=== PATIENT | male | born 1975 | race African-American/Black ===

== ENCOUNTER 2017-05-22 15:21 | Observation (INO) ==
[2017-05-22] MEDS ORDERED: ASPIRIN 325 MG TABLET PO STA (16:56)
[2017-05-22] MEDS ORDERED: ASPIRIN 325 MG TABLET ONE (16:57)
--- NOTE | 2017-05-22 17:29 | XRay Report ---
History: Shortness of breath Date: 05/22/2017 Study: Chest x-ray AP portable Comparison exam: September 05, 2012 The cardiac silhouette is upper normal in size. The mediastinal contours are unremarkable. The pulmonary vasculature is not engorged. The lungs and pleural spaces are clear. Osseous structures are unchanged. Impression: No acute cardiopulmonary process. No significant interval change PROCEDURE INTERPRETED AT [facility] DEPARTMENT OF RADIOLOGY Final Report Signed by: Dr. Tessa Mancnii
[2017-05-22 17:32] LABS: Basophils # 0.1 10*3/uL (0.0-0.2); Basophils % 0.8 % (0.0-0.8); Eosinophils # 0.2 10*3/uL (0.0-0.87); Eosinophils % 2.4 % (0.00-10.9); Hematocrit 42.7 VOL% (42.0-52.0); Hemoglobin 14.8 GM/DL (14.0-18.0); Immature Granulocytes % 0.2 %; Immature Granulocytes Absolute 0.01 #; Lymphocytes # 2.5 10*3/uL (1.4-4.0); Lymphocytes % 38.6 % (21.2-54.2); Mean Corpuscular HGB Conc 34.7 GM/DL (32-36); Mean Corpuscular Hemoglobin 27 PG (27-34); Mean Corpuscular Volume 79.1 FL (87-102); Mean Platelet Volume 10.9 FL (9.6-12.0); Monocytes # 0.6 10*3/uL (0.11-0.8); Monocytes % 9.3 % (1.7-12.7); Neutrophils # 3.1 10*3/uL (1.4-7.4); Neutrophils % 48.7 % (38.7-73.9); Platelet Count 257 T/CUMM (130-400); Red Cell Distribution Width 12.9 % (9.3-17.3); White Blood Count 6.4 T/CUMM (4-12)
--- NOTE | 2017-05-22 17:36 | Emergency Department Note ---
IElder Brittany, am scribing for, and in the presence of, Jostin Watts MD 16:24. Mac Alonzo Charles R, MD, personally performed the services described in this documentation, ascribed by Radha Friedman in my presence, and it is both accurate and complete . Arrival - Arrival Chief Complaint: Blood Pressure Stated Complaint: blood pressure problems ED Nursing Triage Note: pt ambulatory to triage with c/o having elevated bp onset yesterday pt states he has been taking his meds and today at work they checked it and it was 170/107 so they sent him here. Mode of Arrival: Ambulatory Limitations: No Limitations Source: Patient, RN Notes Reviewed - History of Present Illness HPI Narrative: Patient is a 42 y/o black male presenting to the ED with c/o elevated blood pressure with an onset of this morning. Patient reports that this morning he had a "weird feeling," so he checked his blood pressure this morning and found himself to be hypertensive. He then went to [employer] to eat breakfast to have something on his stomach before taking his Metoprolol. He then waited about an hour after taking Metoprolol to recheck his blood pressure and noted to still be hypertensive. He then went to work as scheduled and still felt "weird." He cehcked his blood pressure and was noted to still be hypertensive with a reading of 170/110 mmHg. 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 He then went home, felt better, but then later noticed his heart go into irregular rhythm. He notes that he took a Procardia, but never went back into regular rhythm. He states that his bilateral lower extremities swell often as well. At one time he was on diuretic therapy, but due to excess loss of potassium he was taken off. He is a patient of Dr. Torres, [employer]. He has no other complaint/pain. Onset (ago): hour(s) Consistency: constant Allergies/Adverse Reactions: Allergies Allergy/AdvReac Type Severity Reaction Status Date / Time No Known Allergies Allergy Verified 05/22/17 15:30 Home Medications: Home Medications Medication Instructions Recorded Confirmed Type Aspirin EC Tab 81 mg PO DAILY 05/22/17 05/22/17 History Metoprolol Tartrate 50 mg PO DAILY 05/22/17 05/22/17 History NIFEdipine XL TAB [Procardia Xl] 60 mg PO DAILY 05/22/17 05/22/17 History Review of System - Review of System 12 point system: reviewed and no additional remarkable complaints except as stated - Review of System Constitutional: Absent: chills, fever Eyes: Absent: vision change Head/Ears/Nose/Throat: Absent: nasal drainage, sore throat Respiratory: Absent: respiratory distress Cardiovascular: Present: palpitations, other (elevated blood pressure). Absent : chest pain Gastrointestinal: Absent: abdominal pain, nausea, vomiting, diarrhea, constipation Genitourinary male: Absent: urgency, dysuria, frequency Musculoskeletal: Absent: arm pain, back pain, leg pain, neck pain Skin: Absent: rash Neurological: Absent: headache Psychiatric: Absent: anxiety, depression Medical,Surgical,& Family Hx - Social History Smoking Status: Former smoker Frequency of Alcohol Use: None Type of Drug Use: None Exam Vital Signs: Vital Signs Temperature 97.6 F 05/22/17 15:50 Pulse Rate 63 05/22/17 18:00 Respiratory Rate 18 05/22/17 18:00 Blood Pressure 132/91 05/22/17 18:00 O2 Sat by Pulse Oximetry 97 05/22/17 18:00 - General General appearance: alert, in no apparent distress - Head Head exam: Present: atraumatic, normocephalic, normal inspection - Eye Eye exam: Present: normal appearance, PERRL, EOMI - ENT ENT exam: Present: normal exam, normal oropharynx - Neck Neck exam: Present: normal inspection, full ROM, trachea midline - Chest Chest inspection: Present: normal inspection, symmetric chest wall rise - Respiratory Respiratory exam: Present: normal lung sounds bilaterally - Cardiovascular Cardiovascular exam: Present: regular rate, irregular rhythm (rate controlled irregular rhythm), normal heart sounds. Absent: normal rhythm - Abdominal Exam Abdominal exam: Present: soft, normal bowel sounds. Absent: tenderness - Extremities Exam Extremities exam: Present: pedal edema (+1 edema noted to bilateral lower extremities) - Back Exam Back exam: Present: normal inspection - Neurological Exam Neurological exam: Present: alert, oriented X3, CN II-XII intact. Absent: motor sensory deficit - Psychiatric Psychiatric exam: Present: normal affect, normal mood - Skin Skin exam: Present: warm, dry Course - Consultations Consultation #1: Hospitalist will admit patient Time: 18:29 Results - Labs CBC & BMP: 05/22/17 17:19 05/22/17 17:19 Lab Results: I have reviewed the patients labs Labs: Laboratory Tests 05/22/17 17:19 WBC 6.4 RBC 5.40 Hgb 14.8 Hct 42.7 MCV 79.1 L MCH 27 MCHC 34.7 RDW 12.9 Plt Count 257 MPV 10.9 Neut % (Auto) 48.7 Lymph % (Auto) 38.6 Heard % (Auto) 9.3 Eos % (Auto) 2.4 Baso % (Auto) 0.8 Neut # (Auto) 3.1 Lymph # (Auto) 2.5 Heard # (Auto) 0.6 Eos # (Auto) 0.2 Baso # (Auto) 0.1 Immature Gran % 0.2 Nucleated RBC % 0.0 Immature Gran # 0.01 Nucleated RBCs # 0.00 Laboratory Tests 05/22/17 17:19 Magnesium 2.2 Free T4 1.00 - Diagnostic Findings Procedure: Chest x-ray: report reviewed by me (No acute cardiopulmonary process. No significant interval change.) Disposition Clinical Impression: A. fib rate controlled, Essential Hypertension, Elevated troponin Case discussed with: patient, patient's family Disposition: Still a Patient Condition: Stable Time of Disposition: 18:30
--- NOTE | 2017-05-22 17:37 | EKG Report ---
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
[2017-05-22 17:50] LABS: Magnesium 2.2 MG/DL (1.8-2.4)
[2017-05-22 17:56] LABS: Apearance,Urine CLEAR (Clear); Bilirubin,Urine Negative (Negative); Blood, Urine Negative (Negative); Glucose,Urine (UA) Negative (Negative); Ketones,Urine Negative (Negative); Mucus,Urine Occasional /LPF (Occasional); Nitrite,Urine Negative (Negative); Protein,Urine Negative; RBC,Urine <1 /HPF (0-4); Urine Color Yellow (Yellow); Urine Specific Gravity 1.015 (1.001-1.035); Urine Urobilinogen < 2.0 EU/DL (0.2-1.0); WBC,Urine 1 /HPF (0-6)
[2017-05-22 17:57] LABS: Albumin 3.9 G/DL (3.4-5.0); Bilirubin,Total 0.4 MG/DL (0.2-1.0); Calcium 8.8 MG/DL (8.5-10.1); Osmolality,Calculated 281.3 MOS/KG (273-304); Potassium 3.9 MMOL/L (3.5-5.1); Thyroid Stimulating Hormone 1.21 uIU/ml (0.358-3.74); Total Protein 7.2 G/DL (6.4-8.3); Troponin I Only 0.072 NG/ML (0.00-0.045)
[2017-05-22 18:06] LABS: Barbiturates Screen,Urine Negative (Negative); Benzodiazepines Screen,Urine Negative (Negative); Cannabinoid Screen,Urine Negative (Negative); Opiate Screen,Urine Negative (Negative); Phencyclidine Screen,Urine Negative (Negative)
--- NOTE | 2017-05-22 18:58 | Hospitalist History & Physical ---
Assessment and Plan (1) New onset atrial fibrillation Status: Acute Assessment and plan: metoprolol 50 mg po bid, eliquis 5 mg po bid Current Visit: Yes (2) Hypertension Status: Acute Assessment and plan: losartan 50 mg po bid, procardia, metoprolol Current Visit: Yes (3) RONEL (obstructive sleep apnea) Status: Acute Assessment and plan: cpap at bedtime, check for compliance Current Visit: Yes History of Present Illness Chief complaint: flutter History of present illness: Mr. Wakefield is a 42 year old male presents to the ED with c/o elevated blood pressure with an onset of this morning. Patient reports that this morning he had a "weird feeling," so he checked his blood pressure this morning and found himself to be hypertensive. He rechecked his blood pressure and was noted to still be hypertensive with a reading of 170/110 mmHg. Patient denies sob or chest pain. Patient noted to be in atrial fib in the Er. Patient sees Dr. Torres as an outpatient. Reports 20 pound weight gain and has bilateral LE edema. Home Medications Medication Instructions Recorded Confirmed Type Aspirin EC Tab 81 mg PO DAILY 05/22/17 05/22/17 History Metoprolol Tartrate 50 mg PO DAILY 05/22/17 05/22/17 History NIFEdipine XL TAB [Procardia Xl] 60 mg PO DAILY 05/22/17 05/22/17 History Allergies Allergy/AdvReac Type Severity Reaction Status Date / Time No Known Allergies Allergy Verified 05/22/17 15:30 Medical,Surgical,& Family Hx - Medical History Cardio: History of: Hypertension - Surgical History Orthopedic Surgeries: Surgical HX of;: Orthopedic Surgery (right acl and meniscus tear) - Family History Family History: Reports;: Family Cancer, Family Diabetes - Social History Smoking Status: Former smoker Frequency of Alcohol Use: None Type of Drug Use: None Marital Status: Single Lives With:: Alone Functional capacity: independent ambulation - Constitutional Constitutional: Present: weight gain. Absent: fatigue, fever(s), headache(s) - EENT Eyes: Absent: blurry vision, diplopia Ears: Absent: decreased hearing, ear discharge Nose, mouth and throat: Absent: headache(s), sore throat - Cardiovascular Cardiovascular: Present: edema. Absent: chest pain at rest, dyspnea, dyspnea on exertion - Respiratory Respiratory: Absent: cough, dyspnea, dyspnea on exertion - Gastrointestinal Gastrointestinal: Absent: constipation, diarrhea, nausea, vomiting - Genitourinary Genitourinary: Absent: difficulty urinating, dysuria - Neurological Neurological: Absent: confusion, headache(s), syncope - Psychiatric Psychiatric: Absent: anxiety, depression - Endocrine Endocrine: Absent: fatigue, heat intolerance - Hematologic/Lymphatic Hematologic/Lymphatic: Absent: easy bleeding, easy bruising Exam - Constitutional Vitals: Period Temp Pulse Resp BP Sys/Wellington Pulse Ox Last 24 Hr 97.6 F-97.6 F 58-86 15-19 111-141/83-91 18-99 General appearance: no acute distress, over weight - Head Head exam: Present: normal inspection, normocephalic - Eye Eye exam: Present: EOMI. Absent: scleral icterus Pupils: Present: GILDA, normal accommodation - ENT ENT exam: Present: normal exam, normal external ear exam - Neck Neck exam: Present: thyromegaly. Absent: lymphadenopathy - Respiratory Respiratory exam: Present: clear to auscultation bilaterally. Absent: rhonchi, wheezes - Cardiovascular Cardiovascular exam: Present: bradycardia, irregular rhythm - GI/Abdominal GI/Abdominal exam: Present: normal bowel sounds, soft. Absent: tenderness - Extremities Exam Extremities exam: Present: edema - Neurological Exam Neurological exam: Present: alert, oriented X3, CN II-XII intact, reflexes normal. Absent: motor sensory deficit - Psychiatric Psychiatric exam: Present: normal affect, normal mood - Skin Skin exam: Present: normal color, warm Results - Labs CBC & BMP: 05/22/17 17:19 05/22/17 17:19 Lab Results: I have reviewed the past 24 hour labs - EKG EKG shows: bradycardia, atrial fibrillation - Diagnostic Findings Procedure: Chest x-ray: report reviewed by me (rose)
[2017-05-22] MEDS ORDERED: ONDANSETRON 4 MG/2 ML VIAL IV PRN (21:29)
[2017-05-22] MEDS ORDERED: ACETAMINOPHEN 325 MG TABLET PO PRN (21:29)
[2017-05-22] MEDS: LOSARTAN 50 MG TABLET PO SCH (22:45)
[2017-05-22 22:49] LABS: INR 1.1; PT Patient Result 11.2 SECS
[2017-05-22] MEDS: FUROSEMIDE 20 MG/2 ML VIAL IV SCH (22:53)
[2017-05-22] MEDS: APIXABAN 5 MG TABLET PO SCH (22:53)
[2017-05-23 05:11] LABS: Risk Ratio 3.4; VLDL CHOLESTEROL 20.4 MG/DL
[2017-05-23 05:16] LABS: Calcium 9.3 MG/DL (8.5-10.1); Osmolality,Calculated 276.5 MOS/KG (273-304); Potassium 3.7 MMOL/L (3.5-5.1)
[2017-05-23] MEDS ORDERED: ASPIRIN EC 81 MG TABLET PO SCH (09:00)
[2017-05-23] MEDS: POTASSIUM CHLORIDE 10 MEQ TABLET PO SCH (09:21)
[2017-05-23] MEDS: METOPROLOL TARTRATE 50 MG TABLET PO SCH ×2 (09:21→21:50)
[2017-05-23] MEDS: LOSARTAN 50 MG TABLET PO SCH ×2 (09:31→21:50)
[2017-05-23] MEDS: FUROSEMIDE 20 MG/2 ML VIAL IV SCH ×2 (09:31→16:04)
[2017-05-23] MEDS: APIXABAN 5 MG TABLET PO SCH (09:31)
--- NOTE | 2017-05-23 14:26 | Cardiology Consult Note ---
Assessment and Plan - Time spent with patient Time spent with patient: Greater than 30 minutes (due to lengthy discussion regarding patients medical therapy and compliance) (1) Paroxysmal atrial fibrillation Status: Chronic Assessment and plan: See plan of care listed below. Current Visit: Yes (2) Hypertension Status: Chronic Assessment and plan: See plan of care listed below. Current Visit: Yes (3) RONEL (obstructive sleep apnea) Status: Chronic Assessment and plan: See plan of care listed below. Current Visit: Yes (4) Medical non-compliance Status: Chronic Assessment and plan: See plan of care listed below. Current Visit: Yes (5) Former tobacco use Status: Chronic Assessment and plan: See plan of care listed below. Current Visit: Yes (6) Obesity Status: Chronic Assessment and plan: See plan of care listed below. Current Visit: Yes History of Present Illness - Data of Consult Patient: known to practice within the last 3 years Consult date: 05/23/17 Requesting Physician: Brody Smith III - Consult Narrative Reason for consult: hypertension, lower extremity edema History of present illness: Regional Coordinator: Dr. Torres Mr. Wakefield is a 42 year old male with a history of paroxysmal atrial fibrillation, hypertension, palpitations, obstructive sleep apnea, former tobacco use. Risk factors are significant for: hypertension, obesity, former tobacco use. He has previously had a normal stress test over 5 years ago. 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 The patient presented to the emergency department on 05/22/17 with the complaints of elevated blood pressure and bilateral lower extremity edema. He reports that he woke up "feeling funny" and checked his blood pressure and noted it was 170/ 110 and decided he needed to be evaluated further. He denies chest pain, shortness of breath, dizziness, lightheadedness, syncope, fever, chills, nausea , vomiting, diarrhea. He does report having heartburn. He has also noticed occasional palpitations. He states that his blood pressure had been within normal limits up until this past week. Several days ago, he reports he had not been getting much sleep, maybe 2-5 hours per night for several nights. He also reports he had several nights where he did not wear his CPAP machine. He has previously been on Multaq and quit taking this due to cost. He has also been on Hyzaar in the past and reports the HCTZ made him feel short of breath, so this was also stopped. Mr. Wakefield tells me that he was told by his physician to take Metoprolol 25mg QAM and if he had palpitations during the day, take an additional 25mg tablet at noon. If he continued to have palpitations after that , he states he was told to take a 3rd 25mg tablet. He states he has taken up to 100mg in one day due to palpitations. On admission, his labs were unremarkable. He had an isolated trivially elevated troponin. We will repeat. I suspect this is related to his elevated blood pressure. EKG on admission showed atrial fibrillation with controlled ventricular response with ST-T abnormality, unchanged from October 2016 EKG ( sinus rhythm at that time). He has been in atrial fibrillation with controlled ventricular response since admission. Echocardiogram was performed 05/23/17 and revealed mild LVH, EF 60%, mild biatrial enlargement, and mild pulmonic insufficiency. ASSESSMENT/PLAN: 1. PAROXYSMAL ATRIAL FIBRILLATION - Patient remains in atrial fibrillation. Would like to start him on flecainide; however, the patient tells us if we would just give him an additional dose of Metoprolol 25mg po, this would put him back in a normal rhythm. Will give a one time dose of metoprolol. I suspect if we prescribe flecainide, he is not likely to take this new medication. At some point, if he continues to have issues with PAF, he may be a candidate for ablation. Will further discuss with Dr. Amaya and await his additional recommendations. 2. HYPERTENSION - Currently well controlled on the current therapy. Recommend patient continue Losartan 50mg PO BID, metoprolol 50mg PO BID, procardia XL 60mg PO daily, and full strength aspirin. Patient has few comorbidities and does not wish to be placed on chronic anticoagulation. After discussing with Dr. Amaya, we'll increase his Aspirin to full strength. 3. OBSTRUCTIVE SLEEP APNEA - Sleep medicine is having his device evaluated. Dr. Amaya and I both stressed the importance of compliance as his RONEL could cause him to have more frequent paroxysms of atrial fibrillation. 4. MEDICAL NONCOMPLIANCE - He has a long-standing history of noncompliance with his medications, documented as far back as 2011. He tells me today, "I've been managing my medicines for years and can tell when I need to take something." 5. FORMER TOBACCO USE - Quit in 2014. 6. OBESITY - Chronic. CC: Brody Smith III - Home Medications and Allergies Home Medications: Home Medications Medication Instructions Recorded Confirmed Type Aspirin EC Tab 81 mg PO DAILY 05/22/17 05/22/17 History Metoprolol Tartrate 50 mg PO DAILY 05/22/17 05/22/17 History NIFEdipine XL TAB [Procardia Xl] 60 mg PO DAILY 05/22/17 05/22/17 History Allergies/Adverse Reactions: Allergies Allergy/AdvReac Type Severity Reaction Status Date / Time No Known Allergies Allergy Verified 05/22/17 15:30 12 point system: reviewed and no additional remarkable complaints except as stated Medical,Surgical,& Family Hx - Medical History Cardio: History of: Cardiac Dysrhythmia (AFib), Hypertension - Surgical History Orthopedic Surgeries: Surgical HX of;: Orthopedic Surgery (right acl and meniscus tear) - Family History Family History: Reports;: Family Cancer, Family Diabetes - Social History Smoking Status: Former smoker Frequency of Alcohol Use: None Type of Drug Use: None Marital Status: Lives With:: Spouse Functional capacity: independent ambulation Physical Examination Vital Signs Temp Pulse Resp BP Pulse Ox 97.6 F 80 18 137/87 98 05/22/17 15:24 05/22/17 15:24 05/22/17 15:24 05/22/17 15:24 05/22/17 15:24 Exam: General appearance: Obese, no acute distress. - Head Head exam: Present: normal inspection, normocephalic, atraumatic. Absent: hematoma, laceration - Eye Eye exam: Present: EOMI. Absent: conjunctival injection, nystagmus, periorbital swelling, scleral icterus, laceration to eyelids Pupils: Present: PERRL. Absent: constricted, dilated, fixed, irregular, unequal - ENT ENT exam: Present: normal exam, normal external ear exam - Neck Neck exam: Present: normal inspection. Absent: lymphadenopathy, meningismus, tenderness, thyromegaly - Respiratory Respiratory exam: Present: clear to auscultation bilaterally. Absent: accessory muscle use, chest wall tenderness - Cardiovascular Cardiovascular exam: Present: Irregular rate and rhythm. Absent: carotid bruit , gallop, JVD, rubs, murmur - GI/Abdominal GI/Abdominal exam: Present: normal bowel sounds, soft. Absent: distended, firm , guarding, hernia, mass, tenderness, rebound. - Extremities Exam Extremities exam: Present: normal inspection, normal capillary refill. Upper extremity pulses 2+. Lower extremity pulses 2+. 1+ pitting edema to BLE. Absent : calf tenderness -Musculoskeletal Exam Musculoskeletal: Present: No Fluid Collection, No Pain, Normal Range of Motion - Back Exam Back exam: Present: normal inspection. Absent: muscle spasm, vertebral tenderness - Neurological Exam Neurological exam: Present: alert, oriented X3, grossly intact without resting or essential tremor - Psychiatric Psychiatric exam: Present: normal affect, normal mood - Skin Skin exam: Present: normal color, warm, dry, intact. Absent: cyanosis, diaphoretic, rash, urticaria Result/EKG - Labs CBC & BMP: 05/22/17 17:19 05/23/17 04:08 Lab Results: I have reviewed the past 24 hour labs Labs: Laboratory Results - last 24 hr 05/22/17 05/22/17 05/22/17 17:19 17:19 17:19 WBC 6.4 RBC 5.40 Hgb 14.8 Hct 42.7 MCV 79.1 L MCH 27 MCHC 34.7 RDW 12.9 Plt Count 257 MPV 10.9 Neut % (Auto) 48.7 Lymph % (Auto) 38.6 Ponce % (Auto) 9.3 Eos % (Auto) 2.4 Baso % (Auto) 0.8 Neut # (Auto) 3.1 Lymph # (Auto) 2.5 Ponce # (Auto) 0.6 Eos # (Auto) 0.2 Baso # (Auto) 0.1 Immature Gran % 0.2 Nucleated RBC % 0.0 Immature Gran # 0.01 Nucleated RBCs # 0.00 INR PT Patient/Control Mix Circ Anticoag PTT Sodium Potassium Chloride Carbon Dioxide Anion Gap BUN Creatinine GFR Calculation BUN/Creatinine Ratio Glucose Calculated Osmolality Calcium Magnesium 2.2 Total Bilirubin AST ALT Alkaline Phosphatase Troponin I B-Natriuretic Peptide 13 Total Protein Albumin Globulin Albumin/Globulin Ratio Triglycerides Cholesterol LDL Cholesterol VLDL Cholesterol HDL Cholesterol Heart Disease Risk Ratio Free T4 1.00 TSH 3rd Generation Urine Color Urine Appearance Urine pH Ur Specific Wallace Urine Protein Urine Glucose (UA) Urine Ketones Urine Blood Urine Nitrate Urine Bilirubin Urine Urobilinogen Urine Leukocytes Urine RBC Urine WBC Urine Mucus Urine Yeast (Budding) Ur Culture Indicated? Urine Opiates Screen Ur Barbiturates Screen Ur Phencyclidine Scrn U Amphetamine/Methamph U Benzodiazepines Scrn U Cocaine Metab Screen U Cannabinoids Screen 05/22/17 05/22/17 05/22/17 17:19 17:39 17:39 WBC RBC Hgb Hct MCV MCH MCHC RDW Plt Count MPV Neut % (Auto) Lymph % (Auto) Ponce % (Auto) Eos % (Auto) Baso % (Auto) Neut # (Auto) Lymph # (Auto) Ponce # (Auto) Eos # (Auto) Baso # (Auto) Immature Gran % Nucleated RBC % Immature Gran # Nucleated RBCs # INR PT Patient/Control Mix Circ Anticoag PTT Sodium 141 Potassium 3.9 Chloride 104 Carbon Dioxide 27 Anion Gap 13.9 BUN 13 Creatinine 1.20 GFR Calculation 126 BUN/Creatinine Ratio 10.00 Glucose 112 H Calculated Osmolality 281.3 Calcium 8.8 Magnesium Total Bilirubin 0.40 AST 23 ALT 38 Alkaline Phosphatase 65 Troponin I 0.072 H B-Natriuretic Peptide Total Protein 7.2 Albumin 3.9 Globulin 3.3 Albumin/Globulin Ratio 1.1 Triglycerides Cholesterol LDL Cholesterol VLDL Cholesterol HDL Cholesterol Heart Disease Risk Ratio Free T4 TSH 3rd Generation 1.210 Urine Color Yellow Urine Appearance Clear Urine pH 6.0 Ur Specific Wallace 1.015 Urine Protein Negative Urine Glucose (UA) Negative Urine Ketones Negative Urine Blood Negative Urine Nitrate Negative Urine Bilirubin Negative Urine Urobilinogen < 2.0 H Urine Leukocytes Negative Urine RBC <1 Urine WBC 1 Urine Mucus Occasional Urine Yeast (Budding) Few Ur Culture Indicated? Not indicated Urine Opiates Screen Negative Ur Barbiturates Screen Negative Ur Phencyclidine Scrn Negative U Amphetamine/Methamph Negative U Benzodiazepines Scrn Negative U Cocaine Metab Screen Negative U Cannabinoids Screen Negative 05/22/17 05/23/17 05/23/17 22:35 04:08 04:08 WBC RBC Hgb Hct MCV MCH MCHC RDW Plt Count MPV Neut % (Auto) Lymph % (Auto) Ponce % (Auto) Eos % (Auto) Baso % (Auto) Neut # (Auto) Lymph # (Auto) Ponce # (Auto) Eos # (Auto) Baso # (Auto) Immature Gran % Nucleated RBC % Immature Gran # Nucleated RBCs # INR 1.1 PT Patient/Control Mix 11.2 Circ Anticoag PTT 28.0 Sodium 139 Potassium 3.7 Chloride 103 Carbon Dioxide 29 Anion Gap 10.7 BUN 11 Creatinine 1.10 GFR Calculation 139 BUN/Creatinine Ratio 10.00 Glucose 109 H Calculated Osmolality 276.5 Calcium 9.3 Magnesium Total Bilirubin AST ALT Alkaline Phosphatase Troponin I B-Natriuretic Peptide Total Protein Albumin Globulin Albumin/Globulin Ratio Triglycerides 102 Cholesterol 143 LDL Cholesterol 81.0 VLDL Cholesterol 20.4 HDL Cholesterol 42 Heart Disease Risk Ratio 3.40 Free T4 TSH 3rd Generation Urine Color Urine Appearance Urine pH Ur Specific Wallace Urine Protein Urine Glucose (UA) Urine Ketones Urine Blood Urine Nitrate Urine Bilirubin Urine Urobilinogen Urine Leukocytes Urine RBC Urine WBC Urine Mucus Urine Yeast (Budding) Ur Culture Indicated? Urine Opiates Screen Ur Barbiturates Screen Ur Phencyclidine Scrn U Amphetamine/Methamph U Benzodiazepines Scrn U Cocaine Metab Screen U Cannabinoids Screen - EKG EKG results: interpreted by me EKG shows: atrial fibrillation
--- NOTE | 2017-05-23 14:31 | ECHO Report ---
Adebayo Wakefield Exam Date: 05/23/2017 07:55 Referring Physician: Technologist: Brandy Christensen RDCS Age: 42 Ht (in): 74 Wt (lb): 290 Gender: M Exam Location: [facility] Echo Indications: Atrial fibrillation, Essential (primary) hypertension, RONEL, Edema, unspecified BP: 157 / 81 HR: 79 Rhythm: Sinus Technical Quality: IMPRESSIONS Normal left ventricular cavity size. Mild concentric left ventricular hypertrophy. Normal systolic function. Left ventricular ejection fraction is estimated at 60 %. Mild biatrial enlargement. Mild pulmonic valve insufficiency. MEASUREMENTS (Male / Female) Normal Values 2D ECHO LV Diastolic Diameter PLAX 4.4 cm 4.2 - 5.9 / 3.9 - 5.3 cm LV Systolic Diameter PLAX 3.1 cm LV Fractional Shortening PLAX 30.2 % IVS Diastolic Thickness 1.3 cm 0.6 - 1.0 / 0.6 - 0.9 cm LVPW Diastolic Thickness 1.3 cm 0.6 - 1.0 / 0.6 - 0.9 cm RV Internal Dim ED PLAX 3.8 cm Aortic Root Diameter 3.6 cm LA Systolic Diameter LX 3.6 cm 3.0 - 4.0 / 2.7 - 3.8 cm DOPPLER TR Peak Velocity 235.0 cm/s TR Peak Gradient 22.1 mmHg FINDINGS Left Ventricle Normal left ventricular cavity size. Mild concentric left ventricular hypertrophy. Normal systolic function. Left ventricular ejection fraction is estimated at 60 %. Unable to estimate diastolic function due to arrhythmia. Right Ventricle The right ventricle is normal in size and function. Right Atrium The right atrium is mildly dilated. Left Atrium The left atrium is mildly dilated. Mitral Valve Morphologically normal mitral valve. Trace mitral valve regurgitation. Aortic Valve Morphologically normal aortic valve without significant sclerosis or stenosis. There is no aortic regurgitation. Tricuspid Valve Morphologically normal tricuspid valve. Trace tricuspid valve regurgitation. Tricuspid regurgitation velocities suggest a PAP of 22 mmHg plus right atrial pressure. Pulmonic Valve Morphologically normal pulmonic valve. Mild pulmonary valve regurgitation. Pericardium Normal pericardium without effusion. Aorta Normal ascending aorta dimension. Jay Amaya (Electronically Signed) Final Date: 23 May 2017 14:22
[2017-05-23] MEDS ORDERED: METOPROLOL TARTRATE 25 MG TABLET PO ONE (14:53)
[2017-05-23 16:23] LABS: Troponin I Only 0.068 NG/ML (0.00-0.045)
--- NOTE | 2017-05-23 16:48 | Sleep Medicine Consult ---
Assessment and Plan (1) RONEL (obstructive sleep apnea) Status: Chronic Assessment and plan: We will put him on auto titration mode tonight and see if he does better with the different pressure. We will follow-up his results from download in the morning. Thank you for this consult. Current Visit: Yes (2) Hypertension Status: Chronic Assessment and plan: The prevalence rate for obstructive sleep apnea patients with hypertension is 35 %. That rate can be as high as 80% in patients who require 4 or more medications for blood pressure control. Current Visit: Yes (3) Paroxysmal atrial fibrillation Status: Chronic Assessment and plan: Uncontrolled obstructive sleep apnea can be an exacerbating factor to atrial fibrillation and it is important to control sleep apnea and maintain compliance with CPAP. The patient is aware of this. Current Visit: Yes History of Present Illness Chief complaint: Obstructive sleep apnea History of present illness: Mr. Wakefield is a 42 year old male well known to me in the sleep clinic. He was diagnosed with obstructive sleep apnea in 2014. His obstructive sleep apnea was severe, having a diagnostic AHI of 86 with O2 desaturation to lows of 67%. He was titrated to pressures in the mid teens but had difficulty with tolerance and originally was placed on 8 cm. He had a difficult time with compliance but gradually achieved compliance. On his last follow-up in the sleep clinic on 03/25, he had a 93% usage rate nightly with a 73% compliance rate for over 4 hours of nightly usage. He had good control. Download from his machine that he brought with him shows 90% usage in the past month with a 66% compliance rate for over 4 hours nightly. He is averaging nightly about 5 hours of usage. His control is good with an AHI of 2.9. He feels like his machine is losing pressure during the night. He thinks this may be due to the machine heating up and losing some of its effectiveness. He knows the importance of compliance and has been warned multiple times about the dangers of untreated obstructive sleep apnea, given the severity of his RONEL. Home Medications Medication Instructions Recorded Confirmed Type Aspirin EC Tab 81 mg PO DAILY 05/22/17 05/22/17 History Metoprolol Tartrate 50 mg PO DAILY 05/22/17 05/22/17 History NIFEdipine XL TAB [Procardia Xl] 60 mg PO DAILY 05/22/17 05/22/17 History Allergies Allergy/AdvReac Type Severity Reaction Status Date / Time No Known Allergies Allergy Verified 05/22/17 15:30 Exam (Pulmonay) H&P - Constitutional Vitals: Period Temp Pulse Resp BP Sys/Wellington Pulse Ox Last 24 Hr 97.2 F-98.2 F 58-86 15-20 120-157/78-91 93-99 Exam: He is alert and responsive in no acute distress. Pupils equal round reactive to light and accommodation. Extraocular movements intact. Oropharynx with a class III Mallampati exam. Neck is supple without adenopathy or thyromegaly. No supraclavicular adenopathy is noted. Chest with symmetrical breath sounds without focal wheeze, rhonchi, or rales. Cardiac exam reveals a regular rhythm without murmur or gallop. Abdomen soft nontender without palpable hepatosplenomegaly or mass. Extremities are without clubbing, cyanosis, or edema. Neurologically, he is grossly intact. He moves all extremities with good strength and ambulates with a normal gait. Medical,Surgical,& Family Hx - Medical History Cardio: History of: Cardiac Dysrhythmia (AFib), Hypertension Respiratory: History of: Obstructive Sleep Apnea (Severe with diagnostic AHI of 86 and O2 desats to 67% in 2015) - Surgical History Orthopedic Surgeries: Surgical HX of;: Orthopedic Surgery (right acl and meniscus tear) - Family History Family History: Reports;: Family Cancer, Family Diabetes - Social History Smoking Status: Former smoker Frequency of Alcohol Use: None Type of Drug Use: None Results - Labs CBC & BMP: 05/22/17 17:19 05/23/17 04:08 Lab Results: I have reviewed the past 24 hour labs Specialty Discharge - Follow Up or Referrals Follow up with: Virginia Torres DO [Physician] - 1 Week (He will need to follow up with Dr. Torres in clinic in 1-2 weeks. )
--- NOTE | 2017-05-23 16:56 | Hospitalist Progress Note ---
Assessment and Plan (1) Hypertensive urgency Problem details: Improving control with symptom relief as written above. Status: Acute Current Visit: No (2) RONEL (obstructive sleep apnea) Problem details: Recommend outpatient follow-up with heel seam rubber. Obstructive sleep apnea diagnosed 2014. Status: Chronic Current Visit: Yes (3) Elevated troponin Problem details: No acute coronary syndrome by EKG, troponin levels, echocardiogram, and history and physical exams. Status: Acute Current Visit : Yes (4) Paroxysmal atrial fibrillation Problem details: Regular rhythm on exam today with controlled ventricular rate. Status: Chronic Current Visit: Yes Hospitalist: Subjective Interval history: Patient is a 42-year-old black male admitted for management of hypertensive urgency. Patient reports compliance with antihypertensive medications. He denies use of any recreational drugs that might increase palpitation frequency and reduce blood pressure control. Palpation frequency and severity has improved tremendously since hospital admission. Exam - Constitutional Vitals: Period Temp Pulse Resp BP Sys/Wellington Pulse Ox Last 24 Hr 97.2 F-98.2 F 58-86 15-20 120-157/78-91 93-99 General appearance: over weight - Head Head exam: Present: normal inspection - Eye Eye exam: Present: EOMI - ENT ENT exam: Present: normal exam - Neck Neck exam: Absent: meningismus, tenderness - Respiratory Respiratory exam: Present: clear to auscultation bilaterally. Absent: accessory muscle use, chest wall tenderness, rales, wheezes - Cardiovascular Cardiovascular exam: Present: regular rate and rhythm - GI/Abdominal GI/Abdominal exam: Present: normal bowel sounds, other (Overweight) - Extremities Exam Extremities exam: Present: normal inspection. Absent: calf tenderness, edema - Neurological Exam Neurological exam: Present: alert, oriented X3 - Psychiatric Psychiatric exam: Present: normal affect, normal mood - Skin Skin exam: Present: normal color, dry. Absent: erythema, rash Results - Labs CBC & BMP: 05/22/17 17:19 05/23/17 04:08 Specialty Discharge - Follow Up or Referrals Follow up with: Virginia Torres DO [Physician] - 1 Week (He will need to follow up with Dr. Torres in clinic in 1-2 weeks. )
--- NOTE | 2017-05-24 07:07 | EKG Report ---
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
[2017-05-24 08:26] VITALS: BP 116/75
[2017-05-24] MEDS: METOPROLOL TARTRATE 50 MG TABLET PO SCH (08:33)
[2017-05-24] MEDS: POTASSIUM CHLORIDE 10 MEQ TABLET PO SCH (08:33)
[2017-05-24] MEDS: FUROSEMIDE 20 MG/2 ML VIAL IV SCH (08:35)
[2017-05-24] MEDS: LOSARTAN 50 MG TABLET PO SCH (08:40)
[2017-05-24] MEDS ORDERED: ASPIRIN 325 MG TABLET PO SCH (09:00)
--- NOTE | 2017-05-24 09:12 | Discharge Summary ---
Hospital Course - Hospital Course Hospital Course: Patient is a 42-year-old black male admitted for evaluation of severe hypertension with atypical chest pain complaints. Patient has sustained low level troponin elevation not considered to be indicative of acute coronary syndrome. His blood pressure is better controlled and he is eager for discharge home this morning. Diagnosis - Discharge Diagnosis (1) Hypertensive urgency Status: Acute (2) RONEL (obstructive sleep apnea) Status: Chronic (3) Elevated troponin Status: Acute (4) Paroxysmal atrial fibrillation Status: Chronic (5) Obesity Status: Acute (6) Prediabetes Status: Chronic Specialty Discharge - Follow Up or Referrals Follow up with: Virginia Torres DO [Physician] - 1 Week (He will need to follow up with Dr. Torres in clinic in 1-2 weeks. ) Discharge Plan - Discharge Data Condition at Discharge: Stable Discharge Diet: heart healthy, low fat, low cholesterol, low salt diet Activity: resume usual activities as tolerated (Resume full-time work duties Saturday05/27/2017) Hygiene: no restrictions Weight Bearing at Discharge: full weight bearing Driving: no restrictions Contact your physician if you experience:: fever over 101, Shortness of breath - Discharge Medications New Losartan [Cozaar] 50 mg PO BID #60 tablet Aspirin Chew Tab 81 mg PO DAILY #30 tablet Metoprolol Tartrate Tab [Lopressor Tab] 50 mg PO BID #60 tablet Continue NIFEdipine XL TAB [Procardia Xl] 60 mg PO DAILY #30 Discontinued Aspirin EC Tab 81 mg PO DAILY Metoprolol Tartrate 50 mg PO DAILY - Follow Up or Referral Follow Up: Virginia Torres DO [Physician] - 1 Week (He will need to follow up with Dr. Torres in clinic in 1-2 weeks. ) - Forms/Instructions Exam - Constitutional Vitals: Period Temp Pulse Resp BP Sys/Wellington Pulse Ox Last 24 Hr 97.6 F-98.0 F 57-83 16-20 116-137/68-88 95-97 General appearance: no acute distress, over weight - Head Head exam: Present: normal inspection - Eye Eye exam: Present: EOMI Pupils: Present: GILDA - Neck Neck exam: Absent: meningismus, tenderness - Respiratory Respiratory exam: Present: clear to auscultation bilaterally. Absent: accessory muscle use, chest wall tenderness, rales, wheezes - Cardiovascular Cardiovascular exam: Present: irregular rhythm. Absent: carotid bruit, rubs - GI/Abdominal GI/Abdominal exam: Present: normal bowel sounds, distended, other (Overweight). Absent: ascites, mass, rebound - Extremities Exam Extremities exam: Absent: calf tenderness, edema - Expanded Wearing kneelength IAIN compression stockings Elbow exam: Present: normal inspection Forearm wrist exam: Present: normal inspection Hand wrist exam: Present: normal inspection - Neurological Exam Neurological exam: Present: alert, oriented X3 - Psychiatric Psychiatric exam: Present: normal affect, normal mood - Skin Skin exam: Present: normal color, warm, dry (Wearing bilateral knee length IAIN compression lower leg stockings) Discharge Results Labs on day of discharge: Labs from last 24 hours 05/24/17 05/23/17 07:51 15:44 Hemoglobin A1c 4.9 Total Creatine Kinase 261 CK-MB (CK-2) 2.5 Troponin I 0.068 H - Imaging and Cardiology Procedure: Chest x-ray: image reviewed by me, report reviewed by me (05/22/2017 no acute cardiopulmonary disease changes), Ultrasound: report reviewed by me, other (Echocardiogram 05/23/2017: Normal left ventricular cavity size. Mild concentric left ventricular : LVEF 60%; mild biatrial enlargement) DS: Provider Date of admission: 05/22/17 18:49 Primary care physician: . No PCP Attending physician on admission: Destin Coreas MD Consults: 05/22/17 21:29 Consult to Sleep Center [CONS] Routine Reason for Sleep Center: Technologist Assist Consult Comment: compliance with cpap 05/23/17 12:52 Consult to Physician [CONS] Routine Comment: Consulting Provider: Cardiology - [facility] Person Notified: Ryann Date Notified: 05/23/17 Time Notified: 13:10 Discharging clinician: Brody Smith III Expected date of discharge: 05/24/17
== END 2017-05-24 11:25 | disposition home or self-care (01) ==
LOC: N.ED 15:21 → N.EDINP 15:21 → SUATTDRO 18:49 → N.EDINP 20:45 → N.TELES 20:53
PROVIDERS: ADMIT Internal Medicine; ATTEND Internal Medicine